=== PATIENT | male | born 1985 | race Two or more races ===

== ENCOUNTER 2018-01-27 22:26 | Emergency (ER) | payer SELFPAY ==
[~2018-01-27] VITALS: Ht 180.3 cm; Wt 86.2 kg
--- NOTE | 2018-01-27 22:32 | NUR ---
BIB SELF. AA/O X4 C/C OF CHEST PAIN WITH SOB. NEG S/S OF SOB. CHEST PAIN 03/03. NAD. VSS. STABLE CONDITION. AWAITING MD MONTOYA.
[2018-01-27] MEDS ORDERED: KETOROLAC TROMETHAMINE INJ 30 MG/ML VIAL ONE (22:50)
[2018-01-27 22:58] LABS: BASOPHILS % (AUTO) 0.4 % (0.0-2.0); EOSINOPHILS % (AUTO) 5.6 % (0.0-6.0); HEMATOCRIT 45 % (39-51); HEMOGLOBIN 14.6 g/dL (13.5-17.5); LYMPHOCYTES # (AUTO) 1.3 /CMM (0.8-4.8); LYMPHOCYTES % (AUTO) 23.2 % (20.0-44.0); MEAN CORPUSCULAR HEMOGLOBIN 29 PG (26.0-33.0); MEAN CORPUSCULAR HGB CONC 33 g/dl (31.0-36.0); MEAN CORPUSCULAR VOLUME 88 fL (80-96); MONOCYTES # (AUTO) 0.7 /CMM (0.1-1.30); MONOCYTES % (AUTO) 12.4 % (2.0-12.0); NEUTROPHILS # (AUTO) 3.4 /CMM (1.8-8.9); NEUTROPHILS % (AUTO) 58.4 % (43.0-81.0); PLATELET COUNT (AUTO) 180 /CMM (150-450); RDW COEFFICIENT OF VARIATION 13.7 (11.5-15.0); RED BLOOD CELL COUNT(AUTO) 5.07 MIL/uL (4.5-6.0); WHITE BLOOD COUNT (AUTO) 5.8 K/uL (4.3-11.0)
[2018-01-27] MEDS ORDERED: KETOROLAC TROMETHAMINE INJ 30 MG/ML VIAL IV ONE (23:00)
[2018-01-27 23:11] LABS: CALCIUM, SERUM 8.8 mg/dL (8.5-10.1); CARBON DIOXIDE 32 mmol/L (21-32); CHLORIDE 102 mmol/L (98-107); CREATININE 1.2 mg/dL (0.6-1.3); GLUCOSE 100 mg/dL (74-106); POTASSIUM 3.8 mmol/L (3.5-5.1); SODIUM SERUM 138 mmol/L (136-145); UREA NITROGEN, BLOOD 14 mg/dL (7-18)
[2018-01-27 23:20] LABS: TROPONIN I < 0.017 ng/mL (0.00-0.056)
[2018-01-27 23:36] LABS: D-DIMER 0.19 mg/L(FEU (0.17-0.50); INR 0.96 (0.87-1.13)
--- NOTE | 2018-01-28 00:13 | NUR ---
IV removed. Catheter intact and site benign. Pressure and 4x4 applied to site. No bleeding noted. Patient discharged to home in stable condition. Written and verbal after care instructions given. Patient verbalizes understanding of instruction. ambulatory with a steady gait noted. pt aaox4 no acute distress noted,r stephanie even and unlabored.
[2018-01-28 00:14] VITALS: BP 132/63
== END 2018-01-28 00:15 | disposition home or self-care (01) ==
LOC: ER 22:29
DX: R07.89 Other chest pain (principal); Z88.5 Allergy status to narcotic agent
CPT/HCPCS: 36415; 71045; 80048; 84484; 85025; 85378; 85730; 93005; 96374; 99285; A4606; J1885; Z7610